=== PATIENT | female | born 1940 | race Caucasian/White ===

== ENCOUNTER 2019-11-15 13:39 | Emergency (ER) | payer MEDICARE, OTHER ==
[2019-11-15] MEDS ORDERED: cefTRIAXone 1 GM in Sodium Chloride 0.9% 50 ML IV ONE (14:40)
[2019-11-15] MEDS ORDERED: Sodium Chloride 0.9% 1,000 ML IV ONE (14:40)
--- NOTE | 2019-11-15 15:46 | EDM.PDOC ---
ED HPI GENERAL MEDICAL PROBLEM - General Chief Complaint: Flank Pain Stated Complaint: POSSIBLE KIDNEY OR BLADDER INFECTION Time Seen by Provider: 11/15/19 15:10 Source of Information: Reports: Patient, RN, RN Notes Reviewed History Limitations: Reports: No Limitations - History of Present Illness INITIAL COMMENTS - FREE TEXT/NARRATIVE: Ignacio is a 79 female that is up from [facility] here in [place]. She presents to the ED with c/o right flank pain x 5days. Urinary urgency for 2 days and dysuria that started yesterday. She endorses a fever yesterday but is afebrile in the ED- states that she has taken ibuprofen today. She denies any cough, chest pains, nausea, vomiting, or diarrhea. Ignacio states that she has has UTIs and pyelonephritis in the past and she knew that "it was time to head in to be seen" when she started having her symptoms. 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 Right Flank Pain Score (Numeric/FACES): 6 - Related Data Allergies Allergy/AdvReac Type Severity Reaction Status Date / Time Penicillins Allergy Rash Verified 11/15/19 14:22 Home Meds: Home Meds Cefdinir [Omnicef] 300 mg PO BID 10 Days #20 cap 11/15/19 [Rx] Cetirizine HCl [Zyrtec] 10 mg PO DAILY 11/15/19 [History] Insulin Glarg,Human.Rec.Analog [Lantus Solostar] 48 unit SQ BEDTIME 11/15/19 [History] metFORMIN [Glucophage XR] 500 mg PO DAILY 11/15/19 [History] Past Medical History Cardiovascular History: Reports: Heart Murmur, Other (See Below) Other Cardiovascular History: leaky valvesl Respiratory History: Reports: None Gastrointestinal History: Reports: Cholelithiasis Genitourinary History: Reports: Pyelonephritis, UTI, 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: Musculoskeletal History: Reports: Arthritis Neurological History: Reports: Migraines Psychiatric History: Reports: None Endocrine/Metabolic History: Reports: Diabetes, Type II Hematologic History: Reports: None Immunologic History: Reports: None Oncologic (Cancer) History: Reports: None Dermatologic History: Reports: None - Infectious Disease History Infectious Disease History: Reports: C-Difficile, Chicken Pox, Measles, Shingles - Past Surgical History HEENT Surgical History: Reports: Adenoidectomy, Tonsillectomy GI Surgical History: Reports: Cholecystectomy Female Surgical History: Reports: Hysterectomy Musculoskeletal Surgical History: Reports: Shoulder Replacement Social & Family History - Tobacco Use Smoking Status *Q: Never Smoker - Caffeine Use Caffeine Use: Reports: Coffee - Recreational Drug Use Recreational Drug Use: No ED ROS GENERAL - Review of Systems Review Of Systems: See Below Constitutional: Reports: Fever HEENT: Reports: No Symptoms Respiratory: Reports: No Symptoms Cardiovascular: Reports: No Symptoms Endocrine: Reports: No Symptoms GI/Abdominal: Reports: Abdominal Pain (RLQ pain) : Reports: Dysuria, Flank Pain (right sided), Urgency. Denies: Hematuria Musculoskeletal: Reports: No Symptoms Skin: Reports: No Symptoms Neurological: Reports: No Symptoms Psychiatric: Reports: No Symptoms Hematologic/Lymphatic: Reports: No Symptoms Immunologic: Reports: No Symptoms ED EXAM, RENAL/ - Physical Exam Exam: See Below Exam Limited By: No Limitations General Appearance: Alert, WD/WN, No Apparent Distress Ears: Normal External Exam, Normal Canal, Normal TMs Nose: Normal Inspection, Normal Mucosa Throat/Mouth: Normal Inspection, Normal Oropharynx Head: Atraumatic, Normocephalic Neck: Normal Inspection, Supple, Non-Tender, Full Range of Motion. No: Lymphadenopathy (R), Lymphadenopathy (L) Respiratory/Chest: No Respiratory Distress, Lungs Clear, Normal Breath Sounds. No: Crackles, Wheezing Cardiovascular: Regular Rate, Rhythm, Other (murmurs) GI/Abdominal: Normal Bowel Sounds, Soft, No Distention, Tender (RLQ) (Female) Exam: Deferred Back Exam: Normal Inspection, Full Range of Motion, CVA Tenderness (R). No: CVA Tenderness (L) Extremities: Normal Inspection, Normal Range of Motion, No Pedal Edema, Normal Capillary Refill Neurological: Alert, Oriented, No Motor/Sensory Deficits Psychiatric: Normal Affect, Normal Mood Skin Exam: Warm, Dry, Intact Lymphatic: No Adenopathy Course - Vital Signs Last Recorded V/S: Last Vital Signs Temp 97.6 F 11/15/19 14:20 Pulse 87 11/15/19 14:20 Resp 16 11/15/19 14:20 BP 128/72 11/15/19 14:20 Pulse Ox 94 L 11/15/19 14:20 - Orders/Labs/Meds Orders: Active Orders 24 hr Category Date Time Status CULTURE URINE [RM] Stat Lab 11/15/19 14:35 Received Labs: Laboratory Tests 11/15/19 11/15/19 11/15/19 Range/Units 14:12 14:31 14:31 WBC 7.4 (4.5-11.0) K/uL RBC 4.21 (3.30-5.50) M/uL Hgb 13.0 (12.0-15.0) g/dL Hct 38.8 (36.0-48.0) % MCV 92 (80-98) fL MCH 31 (27-31) pg MCHC 34 (32-36) % Plt Count 248 (150-400) K/uL Neut % (Auto) 54 (36-66) % Lymph % (Auto) 32 (24-44) % Andrew % (Auto) 10 H (2-6) % Eos % (Auto) 3 (2-4) % Baso % (Auto) 1 (0-1) % Sodium 143 (140-148) mmol/L Potassium 3.7 (3.6-5.2) mmol/L Chloride 105 (100-108) mmol/L Carbon Dioxide 32 (21-32) mmol/L Anion Gap 6.5 (5.0-14.0) mmol/L BUN 18 (7-18) mg/dL Creatinine 1.1 H (0.6-1.0) mg/dL Est Cr Clr Drug Dosing 37.93 mL/min Estimated GFR (MDRD) 48 L (>60) Glucose 116 H (74-106) mg/dL Calcium 9.6 (8.5-10.1) mg/dL Total Bilirubin 0.6 (0.2-1.0) mg/dL AST 24 (15-37) U/L ALT 32 (12-78) U/L Alkaline Phosphatase 110 (46-116) U/L Total Protein 6.8 (6.4-8.2) g/dL Albumin 3.2 L (3.4-5.0) g/dL Globulin 3.6 H (2.3-3.5) g/dL Albumin/Globulin Ratio 0.9 L (1.2-2.2) Urine Color Yellow (YELLOW) Urine Appearance Cloudy A (CLEAR) Urine pH 5.5 (5.0-8.0) Ur Specific [place] 1.025 (1.008-1.030) Urine Protein 100 H (NEGATIVE) mg/dL Urine Glucose (UA) Negative (NEGATIVE) mg/dL Urine Ketones Negative (NEGATIVE) mg/dL Urine Occult Blood Small H (NEGATIVE) Urine Nitrite Positive H (NEGATIVE) Urine Bilirubin Negative (NEGATIVE) Urine Urobilinogen 1.0 (0.2-1.0) EU/dL Ur Leukocyte Esterase Large H (NEGATIVE) Urine RBC 10-20 H (0-5) Urine WBC Semi-packed H (0-5) Ur Epithelial Cells Few Amorphous Sediment Not seen Urine Bacteria Many Urine Mucus Not seen Meds: Medications Discontinued Medications Generic Name Dose Route Start Last Admin Trade Name Freq PRN Reason Stop Dose Admin Sodium Chloride 1,000 mls @ 999 mls/hr 11/15/19 14:40 11/15/19 15:30 Normal Saline IV 11/15/19 15:40 999 mls/hr .BOLUS ONE Administration Ceftriaxone Sodium 1 gm/ 50 mls @ 100 mls/hr 11/15/19 14:40 11/15/19 15:30 Sodium Chloride IV 11/15/19 15:09 100 mls/hr ONETIME ONE Administration Departure - Departure Time of Disposition: 16:53 Disposition: Home, Self-Care 01 Condition: Good Clinical Impression: Pyelonephritis, acute, Dehydration - Discharge Information *PRESCRIPTION DRUG MONITORING PROGRAM REVIEWED*: No *COPY OF PRESCRIPTION DRUG MONITORING REPORT IN PATIENT JEANNINE: No Prescriptions: Cefdinir [Omnicef] 300 mg PO BID 10 Days #20 cap Instructions: Pyelonephritis, Adult, [id number] Referrals: PCP,None [Primary Care Provider] - Forms: ED Department Discharge Additional Instructions: Acute pyelonephritis: Drink lots of fluids. Complete the entire course of antibiotics (cefdinir) even if your are feeling better. Your urine has been cultured and the results will be available in 3 days. The culture will tell us if the Cefdinir is an appropriate antibiotic to kill the bacteria in your urine. On Thursday afternoon, please call to the hosp ital ([phone]) and ask for the ED nurse to check your urine culture and if you are on the right antibiotic. Explain to the nurse that you are from out of town and not at home to receive your follow-up letter. You can cigar packer and picker a probiotic (Culturelle) and take that per the instructions on the bottle if you desire. this may help with any GI side effects from the antibiotic. You should use acetaminophen (Tylenol) for pain relief. Ibuprofen is metabolized by the kidneys therefore Tylenol would be the better choice. If you are not improving or getting worse over the next 24-48 hours, return for reevaluation. Call or return to ED with any other concerns such as high fever, increased pain, rash, or severe urinary symptoms. Sepsis Event Note (ED) - Evaluation Sepsis Screening Result: No Definite Risk - Focused Exam Vital Signs: Vital Signs Temp Pulse Resp BP Pulse Ox 11/15/19 14:20 97.6 F 87 16 128/72 94 L 11/15/19 14:18 97.6 F 87 16 128/72 94 L - My Orders Last 24 Hours: My Active Orders 11/15/19 14:35 CULTURE URINE [RM] Stat - Assessment/Plan Last 24 Hours: My Active Orders 11/15/19 14:35 CULTURE URINE [RM] Stat Plan: discharge home. pt feeling better after IVF and antibiotic. Pt is agreeable to plan
== END 2019-11-15 17:02 | disposition home or self-care (01) ==
LOC: JP.ED 13:39
DX: N10 Acute pyelonephritis (principal); E86.0 Dehydration; E11.9 Type 2 diabetes mellitus without complications; Z90.49 Acquired absence of other specified parts of digestive tract; Z90.710 Acquired absence of both cervix and uterus; Z79.4 Long term (current) use of insulin; Z88.0 Allergy status to penicillin
CPT/HCPCS: 36415; 80053; 81001; 85025; 87086; 87088; 87186; 96361; 96365; 99284; J0696; J7030; J7050

== ENCOUNTER 2020-11-12 09:28 | Emergency (ER) | payer MEDICARE, OTHER ==
--- NOTE | 2020-11-12 10:37 | EDM.PDOC ---
ED HPI GENERAL MEDICAL PROBLEM - General Chief Complaint: Respiratory Problem Stated Complaint: PRODUCTIVE COUGH Time Seen by Provider: 11/12/20 10:15 Source of Information: Reports: Patient History Limitations: Reports: No Limitations - History of Present Illness INITIAL COMMENTS - FREE TEXT/NARRATIVE: 80-year-old female who has just finished an extensive course of antibiotics for UTI, presents with 2 to 3 days of postnasal drip, cough at night, and she thinks low-grade fevers. She is a non-smoker, no pulmonary history. She also thinks she has developed a yeast infection vaginally from her recent antibiotics. Note abdominal pain, nausea or vomiting, diarrhea or other issues. Just a minimal sore throat from coughing. Onset: Gradual Duration: Day(s): (3 days) Associated Symptoms: Reports: Cough, Fever/Chills (Possibly low-grade fevers at night), Other (Insomnia from the frequent coughing). Denies: Shortness of Breath - Related Data Allergies Allergy/AdvReac Type Severity Reaction Status Date / Time Penicillins Allergy Rash Verified 11/12/20 09:58 Home Meds: Home Meds Cetirizine HCl [Zyrtec] 10 mg PO DAILY 11/15/19 [History] Insulin Glarg,Human.Rec.Analog [Lantus Solostar] 48 unit SQ BEDTIME 11/15/19 [History] metFORMIN [Glucophage XR] 500 mg PO DAILY 11/15/19 [History] Dulaglutide [Trulicity] 1.5 mg SQ WEEKLY 11/12/20 [History] Past Medical History Cardiovascular History: Reports: Heart Murmur, Other (See Below) Other Cardiovascular History: leaky valvesl Respiratory History: Reports: None Gastrointestinal History: Reports: Cholelithiasis Genitourinary History: Reports: Pyelonephritis, UTI, Recurrent 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: Musculoskeletal History: Reports: Arthritis Neurological History: Reports: Migraines Psychiatric History: Reports: None Endocrine/Metabolic History: Reports: Diabetes, Type II Hematologic History: Reports: None Immunologic History: Reports: None Oncologic (Cancer) History: Reports: None Dermatologic History: Reports: None - Infectious Disease History Infectious Disease History: Reports: C-Difficile, Chicken Pox, Measles, Shingles - Past Surgical History HEENT Surgical History: Reports: Adenoidectomy, Tonsillectomy GI Surgical History: Reports: Cholecystectomy Female Surgical History: Reports: Hysterectomy Musculoskeletal Surgical History: Reports: Shoulder Replacement Social & Family History - Tobacco Use Tobacco Use Status *Q: Never Tobacco User - Caffeine Use Caffeine Use: Reports: Coffee - Recreational Drug Use Recreational Drug Use: No ED ROS GENERAL - Review of Systems Review Of Systems: See Below Constitutional: Reports: Fever, Chills HEENT: Reports: Throat Pain Respiratory: Reports: Cough. Denies: Shortness of Breath, Sputum Cardiovascular: Reports: Chest Pain (Some substernal chest pain from coughing) GI/Abdominal: Reports: No Symptoms Skin: Reports: Other (Erythema and slight discharge in the vaginal area and groin) Neurological: Reports: No Symptoms. Denies: Headache Psychiatric: Reports: No Symptoms ED EXAM, GENERAL - Physical Exam Exam: See Below Exam Limited By: No Limitations General Appearance: Alert, No Apparent Distress Eye Exam: Bilateral Eye: Normal Inspection Ears: Normal TMs Head: Atraumatic Neck: No: Lymphadenopathy (R), Lymphadenopathy (L) Respiratory/Chest: No Respiratory Distress, Lungs Clear, Other (Even with forced expiration her lungs are completely clear) Extremities: Normal Inspection Neurological: Alert, Oriented Psychiatric: Normal Affect, Normal Mood Skin Exam: Warm, Dry Course - Vital Signs Last Recorded V/S: Last Vital Signs Temp 98 F 11/12/20 09:57 Pulse 89 11/12/20 09:57 Resp 16 11/12/20 09:57 BP 138/69 11/12/20 09:57 Pulse Ox 97 11/12/20 09:57 - Re-Assessments/Exams Free Text/Narrative Re-Assessment/Exam: 11/12/20 10:35 It is very unlikely this patient has another bacterial infection, she just finished Augmentin a few days ago. This is more likely allergies or viral, she was given a bottle of Robitussin-AC for cough suppression as well as Tessalon Perles. I think this should be treated symptomatically in the short-term. She was also given 150 mg of Diflucan to take and then repeat in 1 week if needed. She can return in 2 to 3 days if not improving satisfactorily. Departure - Departure Time of Disposition: 10:54 Disposition: Home, Self-Care 01 Clinical Impression: Postnasal drip, Coughing - Discharge Information Instructions: Cough, Adult, [id number] Referrals: PCP,None [Primary Care Provider] - Forms: ED Department Discharge Care Plan Goals: Try cough suppression as directed for the next couple of days, increase activity as tolerated and consider rechecking in 3 to 4 days if not improving satisfactorily. Your symptoms should improve with time. Stay hydrated. Sepsis Event Note (ED) - Evaluation Sepsis Screening Result: No Definite Risk - Focused Exam Vital Signs: Vital Signs Temp Pulse Resp BP Pulse Ox 11/12/20 09:57 98 F 89 16 138/69 97 11/12/20 09:51 98 F 89 16 138/69 97
== END 2020-11-12 10:55 | disposition home or self-care (01) ==
LOC: JP.ED 09:28
DX: R05 Cough (principal); R09.82 Postnasal drip; E11.9 Type 2 diabetes mellitus without complications; Z79.4 Long term (current) use of insulin; Z88.0 Allergy status to penicillin
CPT/HCPCS: 99283

== ENCOUNTER 2020-11-17 09:28 | Emergency (ER) | payer MEDICARE, OTHER ==
[2020-11-17 11:47] LABS: CORONAVIRUS COVID-19 NAA NEGATIVE (NEGATIVE)
--- NOTE | 2020-11-17 13:00 | EDM.PDOC ---
ED HPI GENERAL MEDICAL PROBLEM - General Chief Complaint: Respiratory Problem Stated Complaint: DRAINAGE, COUGHING Time Seen by Provider: 11/17/20 09:55 Source of Information: Reports: Patient, Family History Limitations: Reports: No Limitations - History of Present Illness INITIAL COMMENTS - FREE TEXT/NARRATIVE: 80-year-old female who has had a very persistent upper respiratory cold or cough, postnasal drainage, worse cough at night and generalized malaise and myalgias. Possibly low-grade fevers as well. She was seen in the emergency room 4 days ago, given Tessalon Perles because she had just finished Augmentin for "UTI". Its not helping, she is worsening, is not getting any sleep and wants to be fixed. No shortness of breath. Onset: Gradual Duration: Day(s): (7 days) Associated Symptoms: Reports: Cough, Fever/Chills, Malaise, Shortness of Breath, Weakness, Other (Insomnia). Denies: Nausea/Vomiting upper chest Pain Score (Numeric/FACES): 7 - Related Data Allergies Allergy/AdvReac Type Severity Reaction Status Date / Time Penicillins Allergy Rash Verified 11/17/20 09:45 Home Meds: Home Meds Cetirizine HCl [Zyrtec] 10 mg PO DAILY 11/15/19 [History] Insulin Glarg,Human.Rec.Analog [Lantus Solostar] 48 unit SQ BEDTIME 11/15/19 [History] metFORMIN [Glucophage XR] 500 mg PO DAILY 11/15/19 [History] Dulaglutide [Trulicity] 1.5 mg SQ WEEKLY 11/12/20 [History] Benzonatate 100 mg PO ASDIRECTED PRN 11/17/20 [History] DULoxetine [Cymbalta] 20 mg PO BID 11/17/20 [History] Fluconazole 150 mg PO ASDIRECTED 11/17/20 [History] atorvaSTATin [Lipitor] 10 mg PO BEDTIME 11/17/20 [History] guaiFENesin [Mucinex] 600 mg PO ASDIRECTED PRN 11/17/20 [History] guaiFENesin/Codeine Phosphate [Codeine-Guaifen 10-100 mg/5 ml] 5 ml PO Q4HR PRN 11/17/20 [History] lisinopriL [Lisinopril] 20 mg PO DAILY 11/17/20 [History] Past Medical History Cardiovascular History: Reports: Heart Murmur, High Cholesterol, Hypertension, Other (See Below) Other Cardiovascular History: leaky valvesl Respiratory History: Reports: None Gastrointestinal History: Reports: Cholelithiasis Genitourinary History: Reports: Pyelonephritis, UTI, Recurrent 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: Musculoskeletal History: Reports: Arthritis Neurological History: Reports: Migraines Psychiatric History: Reports: None Endocrine/Metabolic History: Reports: Diabetes, Type II Hematologic History: Reports: None Immunologic History: Reports: None Oncologic (Cancer) History: Reports: None Dermatologic History: Reports: None - Infectious Disease History Infectious Disease History: Reports: C-Difficile, Chicken Pox, Measles, Shingles - Past Surgical History HEENT Surgical History: Reports: Adenoidectomy, Tonsillectomy GI Surgical History: Reports: Cholecystectomy Female Surgical History: Reports: Hysterectomy Musculoskeletal Surgical History: Reports: Shoulder Replacement Social & Family History - Tobacco Use Tobacco Use Status *Q: Never Tobacco User - Caffeine Use Caffeine Use: Reports: Coffee - Recreational Drug Use Recreational Drug Use: No ED ROS GENERAL - Review of Systems Review Of Systems: See Below Constitutional: Reports: Fever, Chills, Malaise HEENT: Reports: Rhinitis, Throat Pain Respiratory: Reports: Shortness of Breath, Cough, Sputum GI/Abdominal: Denies: Abdominal Pain, Nausea, Vomiting Skin: Reports: No Symptoms Neurological: Denies: Headache Psychiatric: Reports: No Symptoms ED EXAM, GENERAL - Physical Exam Exam: See Below Exam Limited By: No Limitations General Appearance: Alert, No Apparent Distress, Other (No distress but does look uncomfortable, frequent moist cough) Eye Exam: Bilateral Eye: Normal Inspection Ears: Normal TMs Head: Atraumatic Neck: Supple, Non-Tender. No: Lymphadenopathy (R), Lymphadenopathy (L) Respiratory/Chest: No Respiratory Distress, Lungs Clear Cardiovascular: Regular Rate, Rhythm, Tachycardia Neurological: Alert, Oriented Psychiatric: Normal Affect, Normal Mood Skin Exam: Warm, Dry Course - Vital Signs Last Recorded V/S: Last Vital Signs Temp 97.7 F 11/17/20 09:42 Pulse 114 H 11/17/20 09:42 Resp 18 11/17/20 09:42 BP 144/68 H 11/17/20 09:42 Pulse Ox 96 11/17/20 09:42 - Orders/Labs/Meds Orders: Active Orders 24 hr Category Date Time Status Chest 2V [CR] Routine Exams 11/17/20 10:59 Taken CULTURE STREP A CONFIRMATION [RM] Routine Lab 11/17/20 12:35 Results STREP SCRN A RAPID W CULT CONF [RM] Routine Lab 11/17/20 12:35 Results Isolation [COMM] Stat Oth 11/17/20 10:59 Ordered Labs: Laboratory Tests 11/17/20 Range/Units 11:05 Influenza Type A RNA Negative (NEGATIVE) RSV RNA (INAAT) Negative (NEGATIVE) Influenza Type B RNA Negative (NEGATIVE) SARS-CoV-2 RNA ([facility]) Negative (NEGATIVE) - Re-Assessments/Exams Free Text/Narrative Re-Assessment/Exam: 11/17/20 12:59 4 Plex viral study and two-view chest x-ray was obtained. The viral study was negative, chest x-ray may have a slight infiltrate in the right perihilar area but is generally clear. She then wanted to be checked for strep throat so a rapid strep was obtained. I tried to impress upon her that this is very very likely viral. 11/17/20 15:04 Strep is negative, patient was placed on a 5-day course of Zithromax and a 5-day course of prednisone 60 mg daily. Departure - Departure Time of Disposition: 13:40 Disposition: Home, Self-Care 01 Clinical Impression: Viral bronchitis - Discharge Information Instructions: Acute Bronchitis, Adult, [id number] Referrals: PCP,None [Primary Care Provider] - Forms: ED Department Discharge Care Plan Goals: Take 6 pills of prednisone with food daily for at least 3 days and up to 5 days if needed. Take the course of Zithromax as prescribed, and increase activity as tolerated. Return if worsening such as difficulty breathing. Sepsis Event Note (ED) - Evaluation Sepsis Screening Result: No Definite Risk - Focused Exam Vital Signs: Vital Signs Temp Pulse Resp BP Pulse Ox 11/17/20 09:42 97.7 F 114 H 18 144/68 H 96 - My Orders Last 24 Hours: My Active Orders 11/17/20 10:59 Chest 2V [CR] Routine Isolation [COMM] Stat 11/17/20 12:35 CULTURE STREP A CONFIRMATION [RM] Routine STREP SCRN A RAPID W CULT CONF [RM] Routine - Assessment/Plan Last 24 Hours: My Active Orders 11/17/20 10:59 Chest 2V [CR] Routine Isolation [COMM] Stat 11/17/20 12:35 CULTURE STREP A CONFIRMATION [RM] Routine STREP SCRN A RAPID W CULT CONF [RM] Routine
--- NOTE | 2020-11-19 09:42 | CR ---
CHEST: 2 view CLINICAL HISTORY:Dyspnea COMPARISON:None FINDINGS: The heart size, pulmonary vascularity and hilar structures are normal. No infiltrate effusion or pneumothorax is seen. There are atherosclerotic changes in the aorta. IMPRESSION: No acute cardiopulmonary process.
== END 2020-11-17 13:48 | disposition home or self-care (01) ==
LOC: JP.ED 09:28
DX: J20.8 Acute bronchitis due to other specified organisms (principal); E78.00 Pure hypercholesterolemia, unspecified; I10 Essential (primary) hypertension; E11.9 Type 2 diabetes mellitus without complications; Z79.4 Long term (current) use of insulin; Z88.0 Allergy status to penicillin; Z79.899 Other long term (current) drug therapy; Z20.822 Contact with and (suspected) exposure to COVID-19
CPT/HCPCS: 0241U; 71046; 87081; 87880; 99283